=== PATIENT | male | born 1985 ===

== ENCOUNTER 2020-02-11 15:29 | Emergency (ER) | payer SELFPAY ==
[~2020-02-11] VITALS: Ht 162.6 cm; Wt 98.5 kg
[2020-02-11] MEDS ORDERED: FLUORESCEIN OPHTHALMIC 1 MG STRIP ONE (15:50)
[2020-02-11] MEDS ORDERED: PROPARACAINE OPHTH 0.5%, 15ML ONE (15:51)
[2020-02-11 15:59] VITALS: BP 122/78
== END 2020-02-11 16:07 ==
LOC: ED 16:01
DX: G51.0 Bell's palsy (principal)
CPT/HCPCS: 99283